=== PATIENT | male | born 2000 | race Two or more races ===

== ENCOUNTER 2023-10-01 18:34 | Emergency (ER) | payer MEDICAID ==
[~2023-10-01] VITALS: Ht 175.3 cm; Wt 96.4 kg
[2023-10-01 18:48] VITALS: BP 145/94; PULSE 67; RESP 18; O2SAT 99
== END 2023-10-01 23:45 | disposition left against medical advice (07) ==
LOC: ER 18:34
DX: R07.81 Pleurodynia (principal); Z53.21 Procedure and treatment not carried out due to patient leaving prior to being seen by health care provider; Y08.89XA Assault by other specified means, initial encounter; Y93.89 Activity, other specified; Y92.89 Other specified places as the place of occurrence of the external cause; Y99.8 Other external cause status